=== PATIENT | female | born 1990 | race African-American/Black ===

== ENCOUNTER 2024-02-11 11:58 | Emergency (ER) | payer BC ==
[2024-02-11 13:39] LABS: Influenza A by NAA Not Detected (NotDetected); Influenza B by NAA Not Detected (NotDetected); SARS-CoV-2 NAA Rapid Test DETECTED (NotDetected)
== END 2024-02-11 13:46 | disposition home or self-care (01) ==
LOC: CSHERS 11:58
DX: O99.891 Other specified diseases and conditions complicating pregnancy (principal); R18.8 Other ascites; O10.911 Unspecified pre-existing hypertension complicating pregnancy, first trimester; Z3A.01 Less than 8 weeks gestation of pregnancy
CPT/HCPCS: 99283

== ENCOUNTER 2024-12-10 11:20 | Emergency (ER) | payer OTHER ==
[2024-12-10] MEDS ORDERED: Cyclobenzaprine 10 MG TAB ONE (11:42)
[2024-12-10] MEDS ORDERED: Ibuprofen 200 MG TAB ONE (11:43)
== END 2024-12-10 11:50 | disposition home or self-care (01) ==
LOC: CSHERS 11:20
DX: M54.6 Pain in thoracic spine (principal); M54.2 Cervicalgia; I10 Essential (primary) hypertension
CPT/HCPCS: 99283